=== PATIENT | female | born 1970 | race Caucasian/White ===

== ENCOUNTER 2016-04-11 05:37 | Inpatient (IN) | payer OTHER ==
[2016-04-10 10:29] VITALS: BMI 34.3
[~2016-04-11] VITALS: Ht 165.1 cm; Wt 94.0 kg
[2016-04-11] VITALS (31 sets, daily range): BP systolic 94–128; BP diastolic 49–64; PULSE 68–114; RESP 12–20; Ht 165.1 cm; Wt 94.0 kg
[2016-04-11] MEDS ORDERED: LIDOCAINE 2% (SDV) 5 ML INJ ONE (06:39)
[2016-04-11] MEDS ORDERED: MIDAZOLAM 1 MG/ML 2 ML INJ ONE (06:39)
[2016-04-11] MEDS ORDERED: NEOSTIGMINE 3 MG/3 ML SYRINGE ONE (06:39)
[2016-04-11] MEDS ORDERED: morphine SULFATE/PF (10 MG/10 ML) INJ ONE ×2 (06:39→08:33)
[2016-04-11] MEDS ORDERED: GLYCOPYRROLATE 0.4 MG INJ ONE (06:39)
[2016-04-11] MEDS ORDERED: FENTAnyl 50 MCG/ML VIAL ONE (06:39)
[2016-04-11] MEDS ORDERED: ROCURONIUM 50 MG INJ ONE (06:39)
[2016-04-11] MEDS ORDERED: PROPOFOL 20 ML ONE (06:39)
[2016-04-11] MEDS ORDERED: IBUP-1542 PO (06:53)
[2016-04-11] MEDS ORDERED: SUCCINYLCHOLINE CHLORIDE 100 MG/5 ML SYG IV ONE (07:00)
[2016-04-11] MEDS ORDERED: hydrALAzine 20 MG INJ IV PRN (07:00)
[2016-04-11] MEDS ORDERED: FLUMAZENIL 0.5 MG INJ ONE (07:00)
[2016-04-11] MEDS ORDERED: FENTAnyl 50 MCG/ML VIAL IV PRN ×2 (07:00)
[2016-04-11] MEDS ORDERED: LABETALOL HCL 20MG INJ IV PRN (07:00)
[2016-04-11] MEDS ORDERED: MEPERIDINE 25 MG INJ IV PRN (07:00)
[2016-04-11] MEDS ORDERED: ONDANSETRON 4 MG INJ IV PRN ×2 (07:00→18:00)
[2016-04-11] MEDS ORDERED: HYDROmorphONE (0.2 MG/ML) 10ML SYG IV PRN ×3 (07:00)
[2016-04-11] MEDS ORDERED: morphine (1 MG/ML) 10ML SYRINGE IV PRN ×3 (07:00)
[2016-04-11] MEDS ORDERED: MIDAZOLAM 1 MG/ML 2 ML INJ IV PRN (07:00)
[2016-04-11] MEDS ORDERED: EPHEDrine SULFATE 50 MG/5 ML SYG IV PRN (07:00)
[2016-04-11] MEDS ORDERED: ATROPINE 1 MG/10 ML SYRINGE IV PRN (07:00)
[2016-04-11] MEDS ORDERED: CEFAZOLIN 1 GM INJ ONE (07:00)
[2016-04-11] MEDS ORDERED: OXYCODONE/ACETAMINOPHEN (5/325) TAB PO PRN ×2 (07:00)
[2016-04-11] MEDS ORDERED: DIPHENHYDRAMINE 50 MG INJ IV PRN (07:00)
[2016-04-11] MEDS ORDERED: DEXAMETHASONE 4 MG/ML 1 ML INJ ONE (07:10)
[2016-04-11] MEDS ORDERED: ONDANSETRON 4 MG INJ ONE (07:10)
[2016-04-11] MEDS: LACTATED RINGER'S 1,000 ML IV SCH ×2 (08:28→14:30)
[2016-04-11] MEDS ORDERED: EPHEDrine SULFATE 50 MG/5 ML SYG ONE (10:08)
[2016-04-11 13:21] LABS: ADD UMIC YES; URINE BILIRUBIN (Dip) NEGATIVE (NEGATIVE); URINE BLOOD (Dip) TRACE (NEGATIVE); URINE COLOR LT. YELLOW (YELLOW); URINE GLUCOSE (Dip) NEGATIVE (NEGATIVE); URINE KETONES (Dip) NEGATIVE (NEGATIVE); URINE LEUKOCYTE ESTERASE (Dip) NEGATIVE (NEGATIVE); URINE NITRITE (Dip) NEGATIVE (NEGATIVE); URINE TOTAL PROTEIN (Dip) NEGATIVE (NEGATIVE); URINE UROBILINOGEN (Dip) 0.2 E.U./dL (0.1-1.0)
[2016-04-11 13:53] LABS: URINE RBCS NONE SEEN /HPF (0)
--- NOTE | 2016-04-11 17:05 | OPR ---
DATE OF OPERATION: 04/11/2016 PREOPERATIVE DIAGNOSIS: Left pelvic adnexal complex cystic mass. POSTOPERATIVE DIAGNOSIS: Left pelvic adnexal complex cystic mass. PROCEDURE: Exploratory laparotomy, left salpingo-oophorectomy. SURGEON: Mykel Lemons MD X RAY TECHNOLOGIST: Rickey Contreras MD/Dr. Contreras will dictate urethral dissection in separate dictation. ANESTHESIA: General. ANESTHESIOLOGIST: Guy Donald MD DETAILS OF THE PROCEDURE: Under satisfactory general anesthesia, the patient was prepped and draped and placed in supine position. A midline vertical incision approximately 2-1/2 inches was ma de. Incision carried through the subcutaneous tissue. Bleeders brought under control with electroc autery. Fascia incised to the length of the incision transversely. Rectus muscle divided in midlin e. Peritoneum exposed, entered through a transverse incision. Exploration of the abdomen, top norm al size rather soft uterus with right tube and ovary that seem to be normal, which originally on the ultrasound reported as abnormal. Left adnexa was containing the cystic ovary with the glistening c apsule, and ecchymotic color. The rest of the exploration of abdomen was within normal. After proper packing, left round ligament was grasped by a Pean clamp and uterus lifted. Left infun dibulopelvic ligament identified and it was clamped, suture material used #1 Vicryl was reinforced w ith the same suture material. The entire ovary and the fallopian tube on the left side were excised after clamping the mesosalpinx and utero-ovarian ligament, suture material used #1 Vicryl, and the left fallopian tube was completely excised from the uterus and sent for the frozen section (patholog y report was consistent with benign condition). The peritoneal cavity irrigated with warm saline. Sponge, needle and instrument reported to be katya ect. Abdominal peritoneum closed with 2-0 Vicryl in continuous fashion. Rectus muscle approximated with few interrupted 2-0 Vicryl, fascia closed with #1 PDS. Subcutaneous tissue approximated with 2-0 chromic catgut. The skin closed with cindy. Estimated blood loss less than 20 mL. The patie nt tolerated procedure well, transferred to recovery room in a good condition. Dictated By: MYKEL LEMONS MD HF/NTS Conf#: [id number] [facility]#: [id number]
[2016-04-11] MEDS: BUTORPHANOL 2 MG INJ IV PRN (21:05)
[2016-04-12] MEDS: LACTATED RINGER'S 1,000 ML IV SCH ×2 (01:37→06:42)
[2016-04-12] MEDS: BUTORPHANOL 2 MG INJ IV PRN ×5 (01:39→21:51)
[2016-04-12 07:34] VITALS: BP 112/59; RESP 16
[2016-04-12] MEDS: OXYCODONE/ACETAMINOPHEN (10/325) TAB PO PRN (18:47)
[2016-04-12 19:33] VITALS: BP 116/67; RESP 20
[2016-04-13] MEDS: LACTATED RINGER'S 1,000 ML IV SCH (06:07)
[2016-04-13 07:55] VITALS: BP 121/66; RESP 22
[2016-04-13] MEDS: OXYCODONE/ACETAMINOPHEN (10/325) TAB PO PRN ×2 (11:47→19:56)
[2016-04-13] MEDS ORDERED: NA PHOSPHATE/BIPHOS 133 ML ENEMA PR ONE (14:30)
--- NOTE | 2016-04-13 16:14 | PN ---
Date/Time of Note Date/Time of Note DATE: 04/13/16 TIME: 16:11 OB Subjective Subjective Subjective Afebrile, abdomen soft moderate distention, weak bowel sounds not able to pass flatus incision dry extremities normal ambulation recommended. MYKEL LEMONS MD Apr 13, 2016 16:14
--- NOTE | 2016-04-13 19:46 | RADRPT ---
PROCEDURE: XR Abdomen CLINICAL INDICATION: Abdominal pain, rule out bowel obstruction TECHNIQUE: AP supine and upright radiographs of the abdomen were submitted COMPARISON: None FINDINGS: Surgical cindy projected vertically through the midline inferior pelvis. Stool is seen to the colon with the bowel gas pattern nonspecific. No free air is identified. No organomegaly or discrete mass is evident. Phleboliths are seen in the pelvis. The osseous elements appear unremarkable. Foci of discoid atelectasis are seen at the lung bases. IMPRESSION: 1. Previous pelvic surgery. 2. Nonspecific bowel gas pattern without free air 3. Discoid atelectasis seen at the lung bases. Physician Jam Date Time Electronically viewed and signed by Physician Jam on 04/13/2016 19:46 /
[2016-04-13 19:48] VITALS: BP 119/71; RESP 20
[2016-04-14] MEDS: LACTATED RINGER'S 1,000 ML IV SCH (00:14)
[2016-04-14 06:14] LABS: ADD SCAN DIFF NO; BASOPHIL # 0.1 10^3/ul (0.0-0.1); BASOPHILS % 0.8 % (0.0-2.0); EOSINOPHILS # 0.2 10^3/ul (0.0-0.5); EOSINOPHILS % 3.4 % (0.0-7.0); HEMATOCRIT 36.3 % (37.0-47.0); HEMOGLOBIN 11.7 g/dl (12.0-16.0); LYMPHOCYTES % 30.3 % (15.0-51.0); MEAN CORPUSCULAR HEMOGLOBIN 27.9 pg (29.0-33.0); MEAN CORPUSCULAR HGB CONC 32.2 g/dl (32.0-37.0); MEAN CORPUSCULAR VOLUME 86.4 fl (82.0-101.0); MEAN PLATELET VOLUME 10.7 fl (7.4-10.4); MONOCYTE # 0.5 10^3/ul (0.3-0.9); MONOCYTES % 6.9 % (0.0-11.0); NEUTROPHIL # 3.8 10^3/ul (1.6-7.5); NEUTROPHILS % 58.3 % (39.0-77.0); PLATELET COUNT 230 10^3/UL (140-415); RED CELL DISTRIBUTION WIDTH 12.9 % (11.5-14.5); WHITE BLOOD COUNT 6.5 10^3/ul (4.8-10.8)
[2016-04-14 08:00] VITALS: BP 124/61; RESP 18
[2016-04-14] MEDS: OXYCODONE/ACETAMINOPHEN (10/325) TAB PO PRN (13:34)
--- NOTE | 2016-04-14 13:51 | DS ---
Date/Time of Note Date/Time of Note DATE: 04/14/16 TIME: 13:06 Discharge Summary Admission/Discharge Info Admit Date/Time Apr 11, 2016 at 05:37 Discharge Date/Time 46 years old female admitted to the hospital for pelvic pain, diagnosed by us RT complex adnexal mass ,under went mini exploratory laparotomy findings were consistent with left benign large hemorrhagic corpus luteal cyst partially twisted,left salpingo oophorectomy performed,post operative course was uneventful except mild ileus ,which resolved spontaneously , on the day of discharge her incision seemed healing well ,had one loose bm and no problem with urination ,she is discharged with a prescription of Motrin and Tylenol3 and appointment to the office in 4 days to dc cindy. Final Diagnosis left hemorrhagic corpus luteal cyst Patient Condition: Good Procedures mini lap left salpingo oophorectomy Hx of Present Illness pelvic pain left complex pelvic mass Hospital Course uneventful Home Meds Reported Medications Ibuprofen* (Ibuprofen*) 600 Mg Tablet, 600 MG PO Q8, TAB 04/11/16 Pending Labs Laboratory Tests Test 04/13/16 14:10 04/14/16 05:26 Urine Test NEGATIVE (NEGATIVE) Basophils # 0.110^3/ul (0.0-0.1) Basophils % 0.8% (0.0-2.0) Eosinophils # 0.210^3/ul (0.0-0.5) Eosinophils % 3.4% (0.0-7.0) Hematocrit 36.3% (37.0-47.0) Hemoglobin 11.7g/dl (12.0-16.0) Lymphocytes # 2.010^3/ul (0.8-2.9) Lymphocytes % 30.3% (15.0-51.0) Mean Corpuscular Hemoglobin 27.9pg (29.0-33.0) Mean Corpuscular Hemoglobin Concent 32.2g/dl (32.0-37.0) Mean Corpuscular Volume 86.4fl (82.0-101.0) Mean Platelet Volume 10.7fl (7.4-10.4) Monocytes # 0.510^3/ul (0.3-0.9) Monocytes % 6.9% (0.0-11.0) Neutrophils # 3.810^3/ul (1.6-7.5) Neutrophils % 58.3% (39.0-77.0) Nucleated Red Blood Cells # 0.010^3/ul (0.0-0.0) Nucleated Red Blood Cells % 0.0/100WBC (0.0-0.0) Platelet Count 00143^3/UL (140-415) Red Blood Count 4.2010^6/ul (4.20-5.40) Red Cell Distribution Width 12.9% (11.5-14.5) White Blood Count 6.510^3/ul (4.8-10.8) MYKEL LEMONS MD Apr 14, 2016 13:44
--- NOTE | 2016-04-17 12:47 | OPR ---
Date/Time of Note Date/Time of Note DATE: 04/17/16 TIME: 12:45 Operative Report Free Text/Dictation 2 OPERATIVE REPORT [facility] Name: [facility] Date: 04/11/16 Preoperative Diagnosis: left sided pelvic mass, pelvic discomfort Postoperative Diagnosis: 1- Benign mass, pathology pending 2- Pelvic adhesions 3- Ureteral distortion Procedures: 1- Left Ureterolysis with repositioning 2- Enterolysis 3- Left salpingoophorectomy (dictated as a separate procedure by Dr. Camara) Surgeon: Dr. Contreras Pants Presser Automatic: Dr. Camara Anaesthesia: General Indication for procedure: The patient was a 46- year old female with a 5-cm left sided painful adnexal mass. She was brought to the operating room to perform a unilateral salpingoophorectomy and possible ureteral dissection and additional procedure with staging after considering all risks and benefits. Dr. Camara was the primary surgeon although I was present as a retirement consultant and to stage if needed for technical reasons. Findings and Summary: After exploration with a minilaparotomy we noted adhesions throughout the anterior abdomen and the pelvis, and therefore extensive enterolysis was accomplished with sharp dissection as well as electrocautery if not adjacent to Name: [facility] small bowel serosa. Subsequently therefore it was requested that a bilateral ureteral dissection and repositioning be performed due to a mass densely adherent to the pelvic sidewall on the left sidewall. The LSO was then completed uneventfully. Procedure: After being prepped and draped in the usual manner a lower abdominal minilaparotomy midline skin incision was made of appropriate length. The electrocautery was then used to dissect thru the adipose tissue to the level of the fascia. The fascia was incised sharply and the residual peritoneum identified. At this time the peritoneum was elevated and incised with a scalpel under counter traction and the peritoneal cavity entered. At this time , the pelvis was inspected and we noted: a complex 5 cm adnexal mass densely adherent to the left pelvic sidewall displacing the ureter. It was therefore requested that I perform an a ureteral dissection with repositioning, as a separate procedure, so that the intended procedure could be completed without complication. Hence the ureteral dissection with repositioning was undertaken. The left round ligament was transected with an electrocautery and the retroperitoneum opened parallel to the infundibulo-pelvic (IP) ligament with the argon fregoso backend java developer. The ureter was identified, and noted to be densely adherent to the pathology and somewhat distorted. The ureter was dissected away from the peritoneum with adjacent pathology and repositioned with great care using the right angle clamp and the peanut. This process was carried out throughout the ureteral length in the pelvis and it peristalsed normally once repositioned. The left IP-ligament was then clamped cut and ligated twice with 0- Vicryl suture by Dr. Camara and the procedure completed by Dr. Camara. At this time, after all packing was removed, the abdomen thoroughly irrigated, hemostasis confirmed. A figure of eight suture was placed at the apex of the incision with 0- Vicryl suture and used for exposure by elevating with a Pean clamp. Interrupted 0- Vicryl suture was used from the Name: [facility] rostral apex and continued to the supra-pubic area. The final suture was tied appropriately, after which the figure of eight was tied. The subcutaneous tissue was irrigated and the skin was closed with 3-0 Vicryl suture and 4-0 Monocryl suture. The sponge, needle, and instrument were correct two times. The estimated blood loss was 100cc The patient tolerated the procedure well and left the OR in good condition. Rickey Contreras M.D. RICKEY CONTRERAS MD Apr 17, 2016 12:47
== END 2016-04-14 20:30 | disposition home or self-care (01) | DRG 742 ==
LOC: REC 05:37 → EDSTATUS 07:30 → MS2 14:20
PROVIDERS: ADMIT Obstetrics & Gynecology; ATTEND Obstetrics & Gynecology
PROC: 0UT00ZZ Resection of Right Ovary, Open Approach (ICD-10-PCS; 2016-04-11)
PROC: 0UT50ZZ Resection of Right Fallopian Tube, Open Approach (ICD-10-PCS; principal; 2016-04-11 07:30)
DX: N83.11 Corpus luteum cyst of right ovary (principal); K56.7 Ileus, unspecified
CPT/HCPCS: 74010; 81001; 81003; 84703; 85025; 86850; 86900; 86901; 86920; 87086; 88305; 88331; 97116; 97162; 97530; J0330; J0690; J1100; J1644; J2250; J2274; J2405; J2710; J3010; J7120

== ENCOUNTER 2017-05-07 06:17 | Day surgery (SDC) | END 2017-05-07 11:40 | disposition home or self-care (01) ==